=== PATIENT | female | born 1970 | race Two or more races ===

== ENCOUNTER 2024-01-29 14:10 | Emergency (ER) | payer BC ==
[~2024-01-29] VITALS: Ht 175.3 cm; Wt 66.7 kg
[2024-01-29] MEDS ORDERED: hydrOXYzine PAMOATE 50 MG CAPSULE PO STA (15:43)
[2024-01-29] MEDS ORDERED: VISTARIL50 MG/ML IM (17:15)
== END 2024-01-29 17:18 | disposition home or self-care (01) ==
LOC: ER 14:11
DX: R53.81 Other malaise (principal); F41.9 Anxiety disorder, unspecified; F32.A Depression, unspecified; Z91.011 Allergy to milk products; Z91.018 Allergy to other foods